=== PATIENT | female | born 2000 | race Caucasian/White ===

== ENCOUNTER 2022-01-03 13:00 | Outpatient (RCR) | payer BC, SELFPAY | END 2022-02-26 12:12 | disposition home or self-care (01) | PROVIDERS: PCP Internal Medicine; Visit Provider Family Medicine | DX: R51.9 Headache, unspecified (principal); Z51.89 Encounter for other specified aftercare | CPT/HCPCS: 97110; 97140; 97162 ==

== ENCOUNTER 2022-12-13 17:58 | Emergency (ER) | payer BC, SELFPAY ==
[2022-12-13 18:05] VITALS: BP 112/72; PULSE 81; RESP 18; TEMP 36.5; O2SAT 98; BMI 28.1
--- NOTE | 2022-12-13 20:28 | ED.NURSE ---
pt. left without seeing MD. pt. signed form. pt. ambulatory from ER with friends.
== END 2022-12-13 20:29 | disposition left against medical advice (07) ==
LOC: ED 20:27
PROVIDERS: Emergency Provider Internal Medicine; PCP Internal Medicine
DX: Z53.21 Procedure and treatment not carried out due to patient leaving prior to being seen by health care provider (principal)